=== PATIENT | female | born 1965 ===

== ENCOUNTER 2024-05-24 12:20 | Emergency (ER) | payer BC | END 2024-05-24 13:48 | disposition home or self-care (01) | LOC: LB.ED 12:20 | DX: S82.831A Other fracture of upper and lower end of right fibula, initial encounter for closed fracture (principal); Z88.2 Allergy status to sulfonamides; Z79.890 Hormone replacement therapy; Z79.899 Other long term (current) drug therapy; W01.0XXA Fall on same level from slipping, tripping and stumbling without subsequent striking against object, initial encounter | CPT/HCPCS: 73610-RT; 99283 ==